=== PATIENT | female | born 1980 | race Two or more races ===

== ENCOUNTER 2017-12-28 08:41 | Outpatient (CLI) | payer OTHER | END 2017-12-28 08:49 | disposition home or self-care (01) | LOC: SONOGRAMA 08:41 | DX: E04.2 Nontoxic multinodular goiter (principal) ==

== ENCOUNTER 2021-05-14 07:19 | Day surgery (SDC) | payer OTHER ==
[~2021-05-14 07:19] MED LIST: BONIVA150 MG PO; D3 + K2 DOTS 11 EACH PO; TAMOXIFEN CITRA10 MG PO
== END 2021-05-14 16:20 | disposition home or self-care (01) ==
LOC: CIR.AMB 07:19
PROVIDERS: ATTEND Surgery
DX: N60.81 Other benign mammary dysplasias of right breast (principal)